=== PATIENT | male | born 1995 | race Caucasian/White ===

== ENCOUNTER → 2018-10-14 | Outpatient (REF) | payer OTHER ==
[2018-10-16 00:06] LABS: ALPHA 1 ANTITRYPSIN 102 mg/dL (90-200); ANGIOTENSIN 1 CONVERTING ENZYM 45 U/L (14-82)
== END ==
LOC: M LAB REF 12:56
PROVIDERS: ATTEND Thoracic Surgery (Cardiothoracic Vascular Surgery)
DX: J43.9 Emphysema, unspecified (principal)

== ENCOUNTER → 2018-10-22 | Outpatient (CLI) | payer OTHER ==
--- NOTE | 2018-10-22 15:33 | PFTRPT ---
Height: 69.00 Inches Weight: 147.00 Lbs BSA: 1.81 Diagnosis: J43.9 DATE OF PROCEDURE: 10/22/2018 ORDERED BY: Dr. Littlejohn Spirometry: Pre and post bronchodilator study of excellent technical quality. Forced vital capacity normal. FEV1 in proportion. Obstructive index is, therefore, normal. Flow Volume Loop: Expiratory limb of the flow volume loop is normal. No significant bronchodilator response is identified. There is significant flattening of the inspiratory portion of the curve, raising a question of vocal cord dysfunction, however. Lung Volumes: Total lung capacity normal. Residual volume does suggest some degree of air trapping. Diffusing Capacity: Diffusing capacity is reduced and does not completely correct for alveolar volume. Hemoglobin: Hemoglobin acceptable at 15.5. Airway Mechanics: Airway resistance and conductance are normal. IMPRESSION: Flattening of the inspiratory limb of the flow volume loop requires clinical correlation. Underlying air trapping with diffusing capacity impairment. Please correlate clinically. MTDD
== END ==
LOC: M CARPUL 12:23 → EDUNIT# 13:00
PROVIDERS: ATTEND Thoracic Surgery (Cardiothoracic Vascular Surgery)
DX: J43.9 Emphysema, unspecified (principal)